=== PATIENT | male | born 1955 | race Two or more races ===

== ENCOUNTER → 2024-11-25 | Outpatient (BNVA) | payer MEDICARE, MEDICAID, SELFPAY | END | disposition home or self-care (01) | PROVIDERS: PCP Nurse Practitioner Family; Referring Provider Nurse Practitioner Family; Visit Provider Nurse Practitioner Family | DX: J20.9 Acute bronchitis, unspecified (principal); E11.9 Type 2 diabetes mellitus without complications; E78.5 Hyperlipidemia, unspecified; Z01.83 Encounter for blood typing; Z23 Encounter for immunization | CPT/HCPCS: 83036; 90471; 90686; 99215 ==

== ENCOUNTER → 2024-11-30 | Outpatient (BNVA) | payer MEDICARE, MEDICAID, SELFPAY | END | disposition home or self-care (01) | PROVIDERS: PCP Nurse Practitioner Primary Care; Referring Provider Nurse Practitioner Primary Care; Visit Provider Nurse Practitioner Primary Care | DX: E11.8 Type 2 diabetes mellitus with unspecified complications (principal); E78.5 Hyperlipidemia, unspecified; Z71.2 Person consulting for explanation of examination or test findings ==

== ENCOUNTER → 2024-12-28 | Outpatient (BNVA) | payer MEDICARE, MEDICAID, SELFPAY | END | disposition home or self-care (01) | PROVIDERS: PCP Nurse Practitioner Primary Care; Referring Provider Nurse Practitioner Primary Care; Visit Provider Nurse Practitioner Primary Care | DX: E11.8 Type 2 diabetes mellitus with unspecified complications (principal) | CPT/HCPCS: 99213 ==

== ENCOUNTER → 2025-03-01 | Outpatient (BNVA) | payer MEDICARE, MEDICAID, SELFPAY | END | disposition home or self-care (01) | PROVIDERS: PCP Nurse Practitioner Family; Referring Provider Nurse Practitioner Family; Visit Provider Nurse Practitioner Family | DX: M65.351 Trigger finger, right little finger (principal) | CPT/HCPCS: 99213 ==

== ENCOUNTER → 2025-03-01 | Outpatient (CLI) | payer MEDICARE, SELFPAY ==
--- NOTE | 2025-03-01 12:11 | XR_ITS ---
Examination: Fingers, right hand fifth digit 3 views Technique: AP, oblique, lateral views right hand fifth digit 3 views. 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
== END | disposition home or self-care (01) ==
PROVIDERS: Referring Provider Nurse Practitioner Primary Care; Visit Provider Nurse Practitioner Primary Care
DX: M19.041 Primary osteoarthritis, right hand (principal)
CPT/HCPCS: 73140

== ENCOUNTER → 2025-03-06 | Outpatient (BNVA) | payer MEDICARE, MEDICAID, SELFPAY | END | disposition home or self-care (01) | PROVIDERS: PCP Nurse Practitioner Family; Referring Provider Nurse Practitioner Family; Visit Provider Nurse Practitioner Family | DX: E11.8 Type 2 diabetes mellitus with unspecified complications (principal); E78.2 Mixed hyperlipidemia; Z71.2 Person consulting for explanation of examination or test findings; Z12.11 Encounter for screening for malignant neoplasm of colon; M19.041 Primary osteoarthritis, right hand | CPT/HCPCS: 99214 ==

== ENCOUNTER 2025-07-25 06:24 | Day surgery (SDC) | payer MEDICARE, MEDICAID, SELFPAY ==
[2025-07-25] VITALS (9 sets, daily range): BP systolic 116–171; BP diastolic 71–92; PULSE 75–94; RESP 12–84; TEMP 36.6–36.9; O2SAT 91–100; BMI 27.6
--- NOTE | 2025-07-25 06:57 | XR_ITS ---
Examination: CT abdomen and pelvis without contrast. Coronal 3-D reconstructions. Sagittal 2-D reconstructions. Date and time of exam:July 25, 2025, 0813 hrs. Indications: Right-sided abdominal pain with nausea vomiting this morning CTDI: vol (mGy): 6.67 DLP: (mGycm): 414 Technique: Axial images of the abdomen have been obtained, 3 mm slice thickness Intravenous contrast material has not been administered. Low dose protocols were performed. One or more of the following dose reduction techniques were used; automated exposure control, adjustment of the mA and/or KV according to patient size, use of iterative reconstruction technique. Findings: Elevation left hemidiaphragm Small retrocardiac gastric hernia No focal liver or splenic lesion Gallbladder is distended gallstones, gallbladder wall appears thickened No pancreatic or adrenal mass No renal or ureteral calculi, no hydronephrosis Aorta normal size No pericecal inflammatory change No bowel obstruction or diverticulitis Urinary bladder intact Moderate stool in the colon Transverse prostate dimension 4.5 cm Prominent osteopenia Impression: Suspicious for acute calculus cholecystitis Recommend HIDA scan or MRCP follow-up
--- NOTE | 2025-07-25 06:57 | XR_ITS ---
Examination: Abdomen sonogram, Limited Date and time of exam: July 25, 2025, 0737 hrs. Indications: Right upper abdominal pain and tenderness and vomiting today Technique: Real-time emery scale transabdominal sonographic images of the upper abdomen obtained. Findings: 17 mm stone in the gallbladder neck Gallbladder wall 0.5 cm with edema Common bile duct 0.3 cm Pancreatic head 2.4 cm Liver 15.2 cm fatty infiltration Normal hepatopedal portal venous flow Patent IVC Impression: Suspicious for acute calculus cholecystitis, consider HIDA scan or MRCP follow-up
--- NOTE | 2025-07-25 06:57 | PD.EDABDPN ---
ED Abdominal Pain RME/HPI General Chief Complaint: Abdominal Pain Stated complaint: ABD PAIN Time seen by provider: 07/25/25 06:59 Arrival date/time: 07/25/25 06:24 70-year-old male with a history of hypertension, hyperlipidemia, type 2 diabetes presents to the emergency room with a chief complaint of 7 out of 10 epigastric pain, nausea x 3 days Source: patient Mode of arrival: ambulatory Limitations: no limitations Related Data Previous Rx's ?Medication ?Instructions ?Recorded empagliflozin 25 mg tablet 25 mg PO QDAY #90 tabs 03/06/25 (Jardiance) lisinopril 10 mg tablet 10 mg PO QDAY #90 tabs 03/06/25 sitagliptin phosphate 50 1 tab PO BID #90 tabs 03/06/25 mg-metformin 1,000 mg tablet (Janumet) rosuvastatin 10 mg tablet See Rx Instructions .Route 05/26/25 .COMPLEX #90 tabs Allergies Allergy/AdvReac Type Severity Reaction Status Date / Time No Known Allergies Allergy Verified 03/06/25 08:40 Review of Systems Review of Systems Systems Reviewed: All systems reviewed, normal except as documented Constitutional Constitutional: Reports system reviewed and no additional complaints, except as documented, Denies fatigue, Denies fever(s), Denies headache(s) and Denies weakness Eyes Eyes: Reports system reviewed and no additional complaints, except as documented, Denies blurry vision and Denies change in vision ENT Ears, Nose, Mouth, and Throat: Reports system reviewed and no additional complaints, except as documented, Denies otalgia, Denies headache(s), Denies nasal congestion, Denies throat swelling and Denies vertigo Cardiovascular Cardiovascular: Reports system reviewed and no additional complaints, except as documented, Denies chest pain, Denies dyspnea and Denies dyspnea on exertion Respiratory Respiratory: Reports system reviewed and no additional complaints, except as documented, Denies chest congestion, Denies cough, Denies dyspnea, Denies dyspnea on exertion and Denies wheezing Gastrointestinal Gastrointestinal: Reports system reviewed and no additional complaints, except as documented, Reports abdominal pain, Reports cramping, Denies nausea and Denies vomiting Genitourinary Genitourinary: Reports system reviewed and no additional complaints, except as documented, Denies dysuria and Denies hematuria Musculoskeletal Musculoskeletal: Reports system reviewed and no additional complaints, except as documented and Denies back pain Integumentary/Breasts Skin/Breast: Reports system reviewed and no additional complaints, except as documented and Denies wounds Neurologic Neurologic: Reports system reviewed and no additional complaints, except as documented, Denies confusion, Denies headache(s), Denies lack of coordination, Denies vertigo and Denies weakness Psychiatric Psychiatric: Reports system reviewed and no additional complaints, except as documented, Denies anxiety, Denies confusion, Denies depression, Denies paranoia, Denies suicidal ideation and Denies tactile hallucinations Endocrine Endocrine: Reports system reviewed and no additional complaints, except as documented and Denies fatigue Hematologic/Lymphatic Hematologic/Lymphatic: Reports system reviewed and no additional complaints, except as documented and Denies lymphadenopathy Allergic/Immunologic Allergic/Immunologic: Reports system reviewed and no additional complaints, except as documented, Denies throat swelling, Denies urticaria and Denies wheezing Past Medical History Social History SMOKING STATUS: Never smoker SECOND HAND EXPOSURE: No ED Exam General Limitations: Present no limitations General appearance: Present alert and in no apparent distress Head Head exam: Present atraumatic Eye Eye exam: Present normal appearance, PERRL and EOMI ENT ENT exam: Present normal exam, normal oropharynx and mucous membranes moist Neck Neck exam: Present normal inspection, full ROM and trachea midline Chest Chest inspection: Present normal inspection and symmetric chest wall rise Respiratory Respiratory exam: Present normal lung sounds bilaterally Cardiovascular Cardiovascular exam: Present regular rate, normal rhythm and normal heart sounds Abdominal Exam Abdominal exam: Present soft, tenderness and normal bowel sounds; Absent Thurston's sign or tenderness at McBurney's Point Abdominal tenderness: Present RUQ, epigastrium and mild Extremities Exam Extremities exam: Present normal inspection and full ROM Back Exam Back exam: Present normal inspection and full ROM Neurological Exam Neurological exam: Present alert, oriented X3 and CN II-XII intact Psychiatric Psychiatric exam: Present normal affect and normal mood Skin Skin exam: Present warm, dry, intact and normal color Course Quality Measures none Orders Category Date Time Status COVID-19 Screening Questionnaire NOW Care 07/25/25 09:16 Active Decision to Admit X1 Care 07/25/25 09:16 Active Insert IV STAT Care 07/25/25 09:17 Ordered NPO NOW Care 07/25/25 09:17 Active Consult to General Surgery Stat Cons 07/25/25 09:17 Ordered Diet NPO (NOW) Diet 07/25/25 09:[address] abdomen pelvis wo con Stat Exams 07/25/25 06:57 Completed US gall bladder Stat Exams 07/25/25 06:57 Completed Amylase Stat Lab 07/25/25 07:25 Completed CBC Stat Lab 07/25/25 07:25 Completed CMP [Comprehensive Metabolic Panel] Stat Lab 07/25/25 07:25 Completed UA [Urinalysis] Stat Lab 07/25/25 07:35 Received Urine Culture Stat Lab 07/25/25 07:35 Received HYDROcodone*/APAP 5/325 [Casper 5/325] Med 07/25/25 06:57 Discontinued 1 tab PO X1 ONE Ondansetron Odt [Zofran Odt] Med 07/25/25 06:57 Discontinued 4 mg PO X1 ONE mg Hyd/Al Hyd/Meredith Susp [Maalox Susp] Med 07/25/25 06:57 Discontinued 30 ml PO X1 ONE Vital Signs Vital signs: Vital Signs Temperature 98.4 F 07/25/25 06:24 Respiratory Rate 84 H 07/25/25 06:24 Blood Pressure 156/84 H 07/25/25 06:24 Pulse Oximetry (%) 96 07/25/25 06:24 Oxygen Delivery Method Room Air 07/25/25 06:24 Abdominal Pain MDM MDM Narrative MDM Narrative:: 70-year-old male with a history of hypertension, hyperlipidemia, type 2 diabetes presents to the emergency room with a chief complaint of 7 out of 10 epigastric pain, nausea x 3 days Patient is hemodynamically stable and in no apparent distress. Patient is afebrile not tachycardic not tachypneic Physical examination shows right upper quadrant abdominal pain with palpation. Patient has a positive Thurston sign. Patient has clear bilateral lung sounds with a strong and regular rhythm S1 and S2 noted Ultrasound of the gallbladder shows suspicions for acute calculous cholecystitis. CT of the abdomen and pelvis shows a 17 mm stone in the gallbladder neck Bilirubin and liver enzymes are within normal limits. The general surgeon on-call Dr. Velásquez was consulted and he will take the patient up to the OR Patient data External records reviewed:: [facility] previous records Clinical information provided by:: patient Social determinants that could affect healthcare access:: none Patient has the following chronic illnesses:: Hypertension, hyperlipidemia, type 2 diabetes How is presenting disease/condition affected by chronic disease/condition?: uneffected by Evaluation data The following diagnostics were reviewed and interpreted by me:: lab results and radiology exam(s) Lab and/or radiology exams considered but not ordered:: Labs and radiology exams considered and ordered Interpretation Summary: CT abdomen and pelvis-Findings: Elevation left hemidiaphragm Small retrocardiac gastric hernia No focal liver or splenic lesion Gallbladder is distended gallstones, gallbladder wall appears thickened No pancreatic or adrenal mass No renal or ureteral calculi, no hydronephrosis Aorta normal size No pericecal inflammatory change No bowel obstruction or diverticulitis Urinary bladder intact Moderate stool in the colon Transverse prostate dimension 4.5 cm Prominent osteopenia Impression: Suspicious for acute calculus cholecystitis Recommend HIDA scan or MRCP follow-up Ultrasound gallbladder-Findings: 17 mm stone in the gallbladder neck Gallbladder wall 0.5 cm with edema Common bile duct 0.3 cm Pancreatic head 2.4 cm Liver 15.2 cm fatty infiltration Normal hepatopedal portal venous flow Patent IVC Impression: Suspicious for acute calculus cholecystitis, consider HIDA scan or MRCP follow-up Medications / Prescriptions Medications or Prescriptions considered but not ordered:: Medication given Medication administrations:: Medication Administration History Discontinued Medications Hydrocodone Bitart/Acetaminophen (Hydrocodone/Apap 5/325 Tablet) 1 tab PO X1 ONE Stop: 07/25/25 06:58 Last Admin: 07/25/25 07:21 Dose: 1 tab Documented By: AROLDO Al Hydrox/Mg Hydrox/Simethicone (Mg Hyd/Al Hyd/Meredith (Maalox Reg) Susp 30 Ml Udc) 30 ml PO X1 ONE Stop: 07/25/25 06:58 Last Admin: 07/25/25 07:22 Dose: 30 ml Documented By: AROLDO Ondansetron HCl (Ondansetron Odt 4 Mg Tabrap) 4 mg PO X1 ONE; Protocol Stop: 07/25/25 06:58 Last Admin: 07/25/25 07:22 Dose: 4 mg Documented By: AROLDO Medication given Consultations Consultation(s) initiated? (list below): Yes Consultation #1 (Physician, Specialty, Details): Dr. Velásquez general surgeon on-call Time: 09:19 Diagnosis Differential diagnosis abdominal pain: abdominal pain, acute appendicitis, constipation, gastroenteritis and other Most likely diagnosis given after review of the tests above:: Acute calculous cholecystitis Admission Indicated Admission indicated?: not indicated Admission Request Was there a request for admission?: Yes Admission Attestation Admission request attestation: Discussed case with [Dr. Velásquez] from Hospitalist service regarding admission. Discussed patients ED course, exam findings, labs, and radiology results. The Hospitalist [agrees,declines] to accept the patient for admission. Disposition Plan Disposition Plan: Admit Discharge Plan Plan Patient Disposition: Admit Acute Care w/in Hospital Discharge Disposition comment: Stable Prescriptions/Referrals Prescriptions/Med Rec: No Action lisinopril 10 mg tablet 10 mg PO QDAY Qty: 90 0RF Jardiance 25 mg tablet 25 mg PO QDAY Qty: 90 0RF Janumet 50-1,000 mg tablet 1 tab PO BID Qty: 90 0RF rosuvastatin 10 mg tablet See Rx Instructions .ROUTE .COMPLEX Qty: 90 0RF Dose Instruction: TAKE 1 TABLET BY MOUTH EVERY DAY Rx Instructions: TAKE 1 TABLET BY MOUTH EVERY DAY Referrals: Robb Garces MD [Primary Care Provider, Family Practice] - In 1 week Problem List Clinical Impression: Acute calculous cholecystitis Patient/Caregiver Discharge Instructions Print Language: Maltese Stand Alone Forms: Catherine Award Info., Patient Portal Info Letter
[2025-07-25] MEDS: HYDROcodone/APAP 5/325 TABLET 1 TAB PO (07:21)
[2025-07-25] MEDS: MG HYD/AL HYD/SIME (Maalox Reg) SUSP 30 ML UDC PO (07:22)
[2025-07-25] MEDS: ONDANSETRON ODT 4 MG TABRAP PO (07:22)
[2025-07-25 07:48] LABS: Basophils # (Auto) 0.0 Thou/mm3 (0.0-0.2); Basophils % (Auto) 0 % (0-2.5); Eosinophils # (Auto) 0.0 Thou/mm3 (0.0-0.5); Eosinophils % (Auto) 0 % (0-10); Hematocrit 45.7 % (41.0-53.0); Hemoglobin 15.2 g/dL (13.5-16.0); Immature Granulocytes Auto 0.05 Thou/mm3 (0.00-0.00); Lymphocytes # (Auto) 1.1 Thou/mm3 (1.0-4.8); Lymphocytes % (Auto) 12 % (10-50); Mean Corpuscular HGB Conc 33.3 g/dl (31.0-37.0); Mean Corpuscular Hemoglobin 30.3 pg (25.0-35.0); Mean Corpuscular Volume 91 fL (80-100); Monocytes # (Auto) 0.3 Thou/mm3 (0.0-0.8); Monocytes % (Auto) 4 % (0-12); Neutrophils # (Auto) 8.2 Thou/mm3 (1.8-7.7); Neutrophils % (Auto) 84 % (37-80); Nucleated Red Blood Cell # 0.00 Thou/mm3 (0.00-0.00); Nucleated Red Blood Cell % 0 /100 WBC (0); Platelet Count 250 Thou/mm3 (140-440); RDW Standard Deviation 45.1 fL (35.1-43.9); Red Blood Count 5.01 Miln/mm3 (4.50-5.90); White Blood Count 9.8 Thou/mm3 (3.8-10.6)
[2025-07-25 07:57] LABS: Alanine Aminotransferase 11 U/L (10-49); Albumin, Serum 4.8 gm/dL (3.4-4.8); Albumin/Globulin Ratio 1.6 (1.2-2.2); Alkaline Phosphatase 109 U/L (46-116); Amylase 56 U/L (30-118); Anion Gap 11 (7-16); Aspartate Amino Transferase 14 U/L (0-34); BUN/Creatinine Ratio 14 Ratio (12-20); Bilirubin,Total 0.5 mg/dL (0.3-1.2); Blood Urea Nitrogen 15 mg/dL (9-23); Calcium 10.1 mg/dL (8.3-10.6); Calcium (Corrected) 10.1 mg/dL (8.5-10.1); Carbon Dioxide 27.1 mMol/L (20.0-31.0); Chloride 102 mMol/L (98-107); Creatinine (Component) 1.1 mg/dL (0.6-1.3); Estimated Creatinine Clearance 60.9 mL/min (>60); Globulin 3.0 gm/dL (2.3-3.5); Glucose 342 mg/dL (74-106); Osmolality,Calculated 294 (275-295); Potassium 4.2 mMol/L (3.4-5.1); Sodium 140 mMol/L (136-145); Total Protein 7.8 gm/dL (5.7-8.2); eGFR > 60 See Note
[2025-07-25 08:07] LABS: Collection Type, Urine Clean Catch; RBC,Urine 0 /hpf (0-3); Squamous Epithelial Cell,Urine 0 /hpf (0-5)
[2025-07-25 08:53] LABS: Bilirubin,Urine Negative (Negative); Blood,Urine Negative (Negative); Clarity,Urine Clear (Clear/Hazy); Color,Urine Lt-Yellow (Lt Yel-Yel); Glucose, Urine 4+ (Negative); Ketones,Urine Trace (Negative); Leukocyte Esterase,Urine Negative (Negative); Nitrite,Urine Negative (Negative); PH,Urine 5.5 (5.0-7.0); Protein,Urine Negative (Neg - Trace); Specific Gravity,Urine 1.037 (1.001-1.035); Urobilinogen,Urine Negative mg/dL (0.0-1.0); WBC,Urine < 1 /hpf (0-5)
--- NOTE | 2025-07-25 09:28 | ESHP_ITS ---
HPI Date of Admission 07/25/2025 Chief Complaint Chief Complaint: Right upper quadrant abdominal pain with nausea and vomiting HPI 70-year-old male with history of diabetes and hypertension presented to the emergency department for acute onset of abdominal pain. She has had intermittent history of epigastric and right upper quadrant abdominal pain for the past few months. Since yesterday his pain has become persistent and progressively worse. His pain is localized in the right upper quadrant rating to his back. He has had nausea and vomiting, but denies fever, chills, jaundice, discoloration of urine or stool. Review of Systems Constitutional Constitutional: Denies chills, Denies fever(s), Denies headache(s) and Denies weakness ENT Ears, Nose, Mouth, and Throat: Denies headache(s) and Denies vertigo Cardiovascular Cardiovascular: Denies chest pain Respiratory Respiratory: Denies cough Gastrointestinal Gastrointestinal: Reports abdominal pain, Reports nausea and Reports vomiting Genitourinary Genitourinary: Denies difficulty urinating Musculoskeletal Musculoskeletal: Reports back pain Neurologic Neurologic: Reports system reviewed and no additional complaints, except as documented, Denies confusion, Denies headache(s), Denies lack of coordination, Denies vertigo and Denies weakness Psychiatric Psychiatric: Denies confusion Hematologic/Lymphatic Hematologic/Lymphatic: Denies easy bleeding and Denies easy bruising Past Medical History Surgical History OTHER SURGICAL HX: eye surgery, knee replacement Social History SMOKING STATUS: Never smoker SUBSTANCE USE: does not use ALCOHOL: Never Meds Home Medications and Allergies Allergies Allergy/AdvReac Type Severity Reaction Status Date / Time No Known Allergies Allergy Verified 03/06/25 08:40 Exam Vital Signs Temp Resp BP Pulse Ox O2 Del Method 98.4 F 84 H 156/84 H 96 Room Air 07/25/25 06:24 07/25/25 06:24 07/25/25 06:24 07/25/25 06:24 07/25/25 06:24 Constitutional Constitutional: no acute distress Routine HEENT Exam Eye: Present PERRL (Anicteric sclera) Routine Respiratory Exam Respiratory: Present CTA bilaterally Routine Cardiovascular Exam Cardiovascular: Present RRR Routine Abdominal Exam Abdominal: Present soft, normoactive bowel sounds and tenderness (Right upper quadrant tenderness to palpation with guarding, positive Thurston sign); Absent distended Results Results: Laboratory Laboratory results: results reviewed Results: Imaging CT scan - abdomen: report reviewed and image reviewed CT scan - pelvis: report reviewed and image reviewed US - abdomen: report reviewed and image reviewed Assessment & Plan Problem List (1) Acute calculous cholecystitis: Status: Acute Plan Will take patient to OR for laparoscopic possible open cholecystectomy. Risks include but not limited to infection, bleeding, injury to bowel, liver, stomach, bile duct, retained stone, bile leak, abdominal sepsis and or abdominal abscess, need for further procedure and or operation discussed with the patient via commercial credit lead. Benefits alternatives explained to him, all his questions answered, he agreed and consented to proceed with the operation. Quality Measures Quality Measures none Advance care planning discussed with:: other (Not discussed)
[2025-07-25] MEDS: ONDANSETRON INJ 2 MG/ML INJ 2 ML 4 MG IVP (10:29)
--- NOTE | 2025-07-25 10:39 | PC.NURSE ---
Taken to surgery at 1038
--- NOTE | 2025-07-25 11:53 | SUR.PHASEI ---
pt arrived to PACU via gurney drowsy but arouses to voice, breathing unlabored, dressing to abdomen clean, dry, and intact, report from Vanessa ZENDEJAS and Ebenezer NICHOLSNO
--- NOTE | 2025-07-25 12:04 | ESOP_ITS ---
Date of Procedure 07/25/25 Pre Op Diagnosis Cholelithiasis with acute cholecystitis Post Op Diagnosis Cholelithiasis with acute cholecystitis Procedure Laparoscopic cholecystectomy Findings Distended gallbladder with multiple gallstones and pericholecystic edema Procedure Description Patient was brought into the operating room in supine position. After administration of general endotracheal anesthesia abdomen was prepped and draped in standard surgical manner. A Veress needle was inserted through the umbilicus and pneumoperitoneum was obtained up to 15 mmHg. The Veress needle was then removed, a 5 mm supraumbilical incision was made and the 5mm trocar was inserted. Laparoscopic camera was placed. Under direct visualization a l aparoscopic camera a 10 mm trocar was placed in subxiphoid and two 5 mm trocars placed in right upper quadrant. The gallbladder was identified and was noted to be moderately distended with multiple gallstones and pericholecystic edema. The gallbladder was decompressed with an aspirator. It was retracted cephalad and laterally. Dissection started near the infundibulum of gallbladder where cystic duct and gallbladder junction clearly identified. The cystic duct was circumferentially dissected off the peritoneum and surrounding inflammatory tissue. The critical view of safety was clearly demonstrated. Cystic duct was then divided between 2 endoclips proximally and one distally. The cystic artery was similarly dissected and divided. The gallbladder was then from the liver bed using electrocautery. The gallbladder was then placed inside an Endo Catch and removed from the abdomen utilizing subxiphoid trocar site. The area was copiously and thoroughly washed and irrigated, all the fluid was suctioned and the suction fluid returned clear. Hemostasis achieved using electrocautery. Endoclips noted be in place and intact without any bleeding or any leakage. Hemostasis was adequate and satisfactory. The subxiphoid trocar sites fascial defect was closed with 0 Vicryl using Endo Closure device. Instruments and trocars removed, pneumoperitoneum was evacuated and the in cisions closed with 4-0 Monocryl in subcuticular fashion. Instrument needle and sponge counts were all reported to be correct X2. Patient tolerated the procedure well, was extubated, breathing spontaneously and without difficulty and was transferred to postanesthesia care in stable condition. Anesthesia GETA and local Pathology / specimen Other (Gallbladder and contents) Estimated Blood Loss 25 Condition Stable Disposition PACU Surgeon Phoenix Velásquez MD Surgical Staff Operation Date: 07/25/25 10:15 Case Staff PADDED [employer]ODU[employer] INSPECTOR TRIMMER: Rene James RN First Assistant: China Hart
--- NOTE | 2025-07-25 12:10 | SUR.PHASEI ---
Report to Abbie ZENDEJAS
--- NOTE | 2025-07-25 12:10 | SUR.PHASEI ---
1210: Pt. AAOx4, vitals stable, breathing unlabored, no complaint of pain or nausea, x4 dermabond sites to ABD CDI, no active bleed noted, report received from Destini Dsouza RN.
--- NOTE | 2025-07-25 12:55 | SUR.PHASEII ---
1255: Pt. AAOx4, vitals stable, breathing unlabored, no complaint of pain or nausea, dressing to ABD CDI, no active bleed noted, pt. tolerated sips of water well, pt. ambulated to wheelchair with steady gait and no assist, no complications. Gave discharge instructions to the pt. and his , both verbalized understanding and had no further questions. Pt. left with all personal belongings. Belongings paper was not filled, pt. was from ER, pt. family had pt. belongings the entire time. Pt. verbalized pt. had all his belongings.
== END 2025-07-25 12:55 | disposition home or self-care (01) ==
LOC: SERX 09:29 → S2EX 09:40
PROVIDERS: Nurse Practitioner Family; Emergency Provider Emergency Medicine; PCP Family Medicine; Referring Provider Surgery; Visit Provider Surgery
PROC: 0FT44ZZ Resection of Gallbladder, Percutaneous Endoscopic Approach (ICD-10-PCS; CPT 47562; principal; 2025-07-25 10:00)
DX: K80.12 Calculus of gallbladder with acute and chronic cholecystitis without obstruction (principal); E11.9 Type 2 diabetes mellitus without complications; I10 Essential (primary) hypertension
CPT/HCPCS: 47562; 36415; 74176; 76705; 80053; 81001; 82150; 85025; 87086; A4217; A4649; J0131; J0694; J1171; J1885; J2405; J2704; J3010; J3490; Q0162; A9270